=== PATIENT | female | born 1970 | race Two or more races ===

== ENCOUNTER 2021-10-10 17:29 | Emergency (ER) | payer BC ==
[~2021-10-10] VITALS: Ht 162.6 cm; Wt 97.5 kg
[2021-10-10] MEDS ORDERED: MONTELUKAST SODI4 M1 (17:37)
[2021-10-10] MEDS ORDERED: PRILOSEC OTC20 MG (17:37)
[2021-10-10] MEDS ORDERED: COZAAR100 MG (17:37)
== END 2021-10-11 01:44 | disposition home or self-care (01) ==
LOC: ER 17:29
DX: K52.9 Noninfective gastroenteritis and colitis, unspecified (principal); E86.0 Dehydration; E87.6 Hypokalemia; I10 Essential (primary) hypertension; F17.200 Nicotine dependence, unspecified, uncomplicated